=== PATIENT | male | born 1975 | race African-American/Black ===

== ENCOUNTER 2022-06-07 23:12 | Emergency (ER) | payer SELFPAY ==
[~2022-06-07 23:12] MED LIST: CLARITIN10 MG PO; MEDROL DOSEPAK4 MG PO
[2022-06-08 01:29] LABS: BASO # 0.1 10*3/uL (0.0-0.1); BASO % 1.2 % (0.0-1.0); EOS # 0.3 10*3/uL (0.0-0.4); EOS % 3.4 % (1.0-4.0); HEMATOCRIT 46.6 % (42.0-52.0); LYMPH # 2.7 10*3/uL (1.3-4.4); LYMPH % 31.3 % (27.0-41.0); MEAN CELL VOLUME 85.2 fl (80.0-94.0); MEAN CORPUSCULAR HGB 28.2 pg (27.0-31.0); MEAN PLATELET VOLUME 11.3 fl (9.6-12.3); MONO # 0.6 10*3/uL (0.1-1.0); MONO % 7.2 % (3.0-9.0); NEUT # 4.9 10*3/uL (2.3-7.9); NEUT % 56.8 % (47.0-73.0); PLATELET COUNT AUTOMATED 174 10*3/uL (130-400); RED BLOOD COUNT 5.47 10*6/uL (4.50-5.90); RED CELL DISTRI WIDTH 12.3 % (0-14.5); WHITE BLOOD COUNT 8.6 10*3/uL (4.8-10.8)
[2022-06-08 01:46] LABS: ALKALINE PHOSPHATASE 84 U/L (45-117); BUN 13 mg/dl (7-24); CHLORIDE 111 mmol/L (98-107); CREATININE 1.26 mg/dL (0.70-1.30); SGOT/AST 18 IU/L (3-35); SGPT/ALT 34 U/L (12-78); SODIUM 142 mmol/L (136-145); TOTAL PROTEIN 6.7 gm/dL (6.4-8.2)
== END 2022-06-08 02:50 | disposition left against medical advice (07) ==
LOC: ED 23:12
PROVIDERS: Family Medicine
DX: K08.89 Other specified disorders of teeth and supporting structures (principal); Z88.0 Allergy status to penicillin; Z91.040 Latex allergy status; Z88.1 Allergy status to other antibiotic agents

== ENCOUNTER 2022-06-20 22:17 | Emergency (ER) | payer MEDICAID ==
[~2022-06-20] VITALS: Ht 182.8 cm; Wt 103.0 kg
[2022-06-20 22:37] LABS: BASO # 0.1 10*3/uL (0.0-0.1); BASO % 1.2 % (0.0-1.0); EOS # 0.2 10*3/uL (0.0-0.4); EOS % 2.6 % (1.0-4.0); HEMATOCRIT 44.4 % (42.0-52.0); LYMPH # 2.2 10*3/uL (1.3-4.4); LYMPH % 28.5 % (27.0-41.0); MEAN CELL VOLUME 83.9 fl (80.0-94.0); MEAN CORPUSCULAR HGB 28.2 pg (27.0-31.0); MEAN CORPUSCULAR HGB CONC 33.6 g/dl (33.0-37.0); MEAN PLATELET VOLUME 11.5 fl (9.6-12.3); MONO # 0.5 10*3/uL (0.1-1.0); MONO % 6.4 % (3.0-9.0); NEUT # 4.7 10*3/uL (2.3-7.9); PLATELET COUNT AUTOMATED 161 10*3/uL (130-400); RED BLOOD COUNT 5.29 10*6/uL (4.50-5.90); RED CELL DISTRI WIDTH 12.1 % (0-14.5); WHITE BLOOD COUNT 7.6 10*3/uL (4.8-10.8)
[2022-06-20 22:51] LABS: ALKALINE PHOSPHATASE 93 U/L (45-117); BUN 11 mg/dl (7-24); CHLORIDE 108 mmol/L (98-107); CREATININE 1.21 mg/dL (0.70-1.30); POTASSIUM 3.5 mmol/L (3.5-5.1); SGOT/AST 25 IU/L (3-35); SGPT/ALT 38 U/L (12-78); SODIUM 140 mmol/L (136-145); TOTAL PROTEIN 6.9 gm/dL (6.4-8.2)
[2022-06-21 01:17] LABS: BILIRUBIN Negative (Negative); BLOOD Negative (Negative); CLARITY Clear (Clear); COLOR Yellow (Yellow); GLUCOSE Negative (Negative); KETONE Negative (Negative); LEUKO ESTERASE Negative (Negative); NITRITE Negative (Negative); PH 5.5 (4.5-8.0); UROBILINOGEN 0.2 E.U./dl (0.0-1.0)
[2022-06-21 01:26] LABS: URINE AMPHETAMINES < 1000 (1000ng/ml); URINE BARBITURATES < 200 (200ng/ml); URINE BENZODIAZEPINES < 200 (200ng/ml); URINE CANNABINOIDS (THC) > 50 (50ng/ml); URINE COCAINE < 300 (300ng/ml); URINE METHADONE < 300 (300ng/ml); URINE OPIATES < 300 (300ng/ml)
[2022-06-21 01:27] LABS: URINE PHENCYCLIDINE < 25 (25ng/ml)
== END 2022-06-21 01:54 | disposition home or self-care (01) ==
LOC: ED 22:17
PROVIDERS: Internal Medicine
DX: R56.9 Unspecified convulsions (principal); Z88.0 Allergy status to penicillin; Z88.1 Allergy status to other antibiotic agents

== ENCOUNTER 2022-07-21 11:40 | Emergency (ER) | payer MEDICAID ==
[~2022-07-21] VITALS: Wt 103.4 kg
[2022-07-21 12:40] LABS: BASO # 0.1 10*3/uL (0.0-0.1); BASO % 1.4 % (0.0-1.0); EOS # 0.1 10*3/uL (0.0-0.4); EOS % 1.2 % (1.0-4.0); HEMATOCRIT 49.4 % (42.0-52.0); LYMPH # 1.5 10*3/uL (1.3-4.4); LYMPH % 16.5 % (27.0-41.0); MEAN CELL VOLUME 84.2 fl (80.0-94.0); MEAN CORPUSCULAR HGB 27.9 pg (27.0-31.0); MEAN CORPUSCULAR HGB CONC 33.2 g/dl (33.0-37.0); MEAN PLATELET VOLUME 11.8 fl (9.6-12.3); MONO # 0.4 10*3/uL (0.1-1.0); MONO % 4.6 % (3.0-9.0); NEUT # 6.8 10*3/uL (2.3-7.9); NEUT % 76.1 % (47.0-73.0); PLATELET COUNT AUTOMATED 165 10*3/uL (130-400); RED BLOOD COUNT 5.87 10*6/uL (4.50-5.90); RED CELL DISTRI WIDTH 12.6 % (0-14.5)
[2022-07-21 12:56] LABS: ALKALINE PHOSPHATASE 89 U/L (45-117); BUN 12 mg/dl (7-24); CHLORIDE 110 mmol/L (98-107); CREATININE 1.15 mg/dL (0.70-1.30); POTASSIUM 4.4 mmol/L (3.5-5.1); SGOT/AST 15 IU/L (3-35); SGPT/ALT 33 U/L (12-78); SODIUM 142 mmol/L (136-145)
[2022-07-21] MEDS ORDERED: CLINDAMYCIN HC300 MG PO (13:05)
== END 2022-07-21 13:08 | disposition home or self-care (01) ==
LOC: ED 11:40
PROVIDERS: Physician Assistant
DX: K04.7 Periapical abscess without sinus (principal); Z88.0 Allergy status to penicillin; Z91.040 Latex allergy status

== ENCOUNTER 2022-08-15 06:40 | Emergency (ER) | payer MEDICAID ==
[~2022-08-15] VITALS: Ht 182.8 cm; Wt 102.1 kg
[~2022-08-15 06:40] MED LIST changes: +CLINDAMYCIN HC300 MG PO
[2022-08-15] MEDS ORDERED: CLINDAMYCIN HC300 MG PO (08:15)
== END 2022-08-15 08:20 | disposition home or self-care (01) ==
LOC: ED 06:40
DX: K02.9 Dental caries, unspecified (principal); Z88.0 Allergy status to penicillin; Z91.018 Allergy to other foods; Z91.030 Bee allergy status; F17.200 Nicotine dependence, unspecified, uncomplicated

== ENCOUNTER 2022-08-17 21:42 | Emergency (ER) | payer MEDICAID ==
[~2022-08-17] VITALS: Ht 182.8 cm; Wt 101.6 kg
== END 2022-08-17 23:33 | disposition home or self-care (01) ==
LOC: ED 21:42
DX: S60.221A Contusion of right hand, initial encounter (principal); S09.90XA Unspecified injury of head, initial encounter; Z91.030 Bee allergy status; Z91.018 Allergy to other foods; Z88.0 Allergy status to penicillin; W51.XXXA Accidental striking against or bumped into by another person, initial encounter; Y93.89 Activity, other specified; Y92.89 Other specified places as the place of occurrence of the external cause; Y99.8 Other external cause status

== ENCOUNTER 2022-09-01 08:41 | Emergency (ER) | payer SELFPAY ==
[2022-09-01 09:59] LABS: BASO % 0.8 % (0.0-1.0); EOS # 0.1 10*3/uL (0.0-0.4); EOS % 1.8 % (1.0-4.0); HEMATOCRIT 48.3 % (42.0-52.0); LYMPH % 20.3 % (27.0-41.0); MEAN CELL VOLUME 82.8 fl (80.0-94.0); MEAN CORPUSCULAR HGB 28.1 pg (27.0-31.0); MEAN PLATELET VOLUME 12.1 fl (9.6-12.3); MONO # 0.5 10*3/uL (0.1-1.0); MONO % 10.1 % (3.0-9.0); NEUT # 3.3 10*3/uL (2.3-7.9); NEUT % 66.8 % (47.0-73.0); PLATELET COUNT AUTOMATED 130 10*3/uL (130-400); RED BLOOD COUNT 5.83 10*6/uL (4.50-5.90); RED CELL DISTRI WIDTH 12.1 % (0-14.5); WHITE BLOOD COUNT 4.9 10*3/uL (4.8-10.8)
[2022-09-01 10:11] LABS: ACT PARTIAL THROMBO TIME 30.1 SECONDS (20.0-32.1); INTERNATIONAL NORM RATIO 1.1 (2.0-3.5)
[2022-09-01 10:13] LABS: ALKALINE PHOSPHATASE 79 U/L (46-116); BUN 9 mg/dl (9-23); CHLORIDE 104 mmol/L (98-107); CREATININE 1.04 mg/dL (0.70-1.30); LIPASE 31 U/L (12-53); POTASSIUM 4.2 mmol/L (3.4-5.1); SGPT/ALT 26 U/L (10-49); SODIUM 138 mmol/L (136-145); TOTAL PROTEIN 6.6 gm/dL (6.0-8.0)
[2022-09-01 10:20] LABS: BILIRUBIN Negative (Negative); BLOOD Negative (Negative); CLARITY Clear (Clear); COLOR Yellow (Yellow); GLUCOSE Negative (Negative); KETONE Trace (Negative); LEUKO ESTERASE Trace (Negative); NITRITE Negative (Negative)
[2022-09-01 10:38] LABS: BACTERIA TRACE; EPITHELIAL CELLS 0-2; WBC 0-2 wbc/hpf (0-5)
[2022-09-01] MEDS ORDERED: CYCLOBENZAPRINE10 MG PO (11:58)
[2022-09-01] MEDS ORDERED: RELAFEN500 M1 PO (11:58)
== END 2022-09-01 12:19 | disposition home or self-care (01) ==
LOC: ED 08:41
PROVIDERS: Family Medicine
DX: R10.31 Right lower quadrant pain (principal); Z91.030 Bee allergy status; Z88.0 Allergy status to penicillin

== ENCOUNTER 2024-02-01 17:37 | Emergency (ER) | payer MEDICAID ==
[~2024-02-01] VITALS: Ht 185.4 cm; Wt 98.9 kg
[~2024-02-01 17:37] MED LIST changes: +CYCLOBENZAPRINE10 MG PO; +RELAFEN500 M1 PO
[2024-02-01] MEDS ORDERED: DILANTIN100 MG PO (17:50)
[2024-02-01 17:59] LABS: BASO # 0.1 10*3/uL (0.0-0.1); BASO % 1.4 % (0.0-1.0); EOS # 0.2 10*3/uL (0.0-0.4); EOS % 2.3 % (1.0-4.0); HEMATOCRIT 48.1 % (42.0-52.0); LYMPH # 2.2 10*3/uL (1.3-4.4); LYMPH % 21.6 % (27.0-41.0); MEAN CELL VOLUME 86.8 fl (80.0-94.0); MEAN CORPUSCULAR HGB 28.5 pg (27.0-31.0); MEAN CORPUSCULAR HGB CONC 32.8 g/dl (33.0-37.0); MEAN PLATELET VOLUME 11.1 fl (9.6-12.3); MONO # 0.6 10*3/uL (0.1-1.0); MONO % 5.7 % (3.0-9.0); NEUT # 6.9 10*3/uL (2.3-7.9); NEUT % 68.8 % (47.0-73.0); PLATELET COUNT AUTOMATED 177 10*3/uL (130-400); RED BLOOD COUNT 5.54 10*6/uL (4.50-5.90); RED CELL DISTRI WIDTH 12.3 % (0-14.5); WHITE BLOOD COUNT 10.1 10*3/uL (4.8-10.8)
[2024-02-01 18:22] LABS: ALKALINE PHOSPHATASE 87 U/L (46-116); BUN 9 mg/dl (9-23); CHLORIDE 106 mmol/L (98-107); LIPASE 34 U/L (12-53); POTASSIUM 3.7 mmol/L (3.4-5.1); SGPT/ALT 37 U/L (5-49); TOTAL PROTEIN 6.9 gm/dL (6.0-8.0)
[2024-02-01 18:24] LABS: ETHYL ALCOHOL < 3.0 mg/dl (<3); PHENYTOIN (DILANTIN) < 2.0 ug/ml (10-20)
[2024-02-01 18:30] LABS: ACT PARTIAL THROMBO TIME 27.1 SECONDS (20.0-32.1)
[2024-02-01] MEDS ORDERED: [UNRECOGNIZED DRUG - OTHER] IV ONE (19:45)
[2024-02-01] MEDS ORDERED: ACETAMINOPHEN 325 MG TAB PO ONE (19:50)
[2024-02-01] MEDS ORDERED: Ondansetron Hydrochloride 4 MG/2 ML VIAL IV ONE (20:30)
== END 2024-02-01 20:36 | disposition home or self-care (01) ==
LOC: ED 17:37
PROVIDERS: Internal Medicine
DX: G40.909 Epilepsy, unspecified, not intractable, without status epilepticus (principal); R74.8 Abnormal levels of other serum enzymes; Z53.29 Procedure and treatment not carried out because of patient's decision for other reasons; F32.A Depression, unspecified; J45.909 Unspecified asthma, uncomplicated; J44.9 Chronic obstructive pulmonary disease, unspecified; E16.2 Hypoglycemia, unspecified; Z91.030 Bee allergy status; Z91.013 Allergy to seafood; Z88.0 Allergy status to penicillin; Z88.1 Allergy status to other antibiotic agents; Z87.891 Personal history of nicotine dependence

== ENCOUNTER 2024-09-01 21:21 | Emergency (ER) | payer SELFPAY ==
[~2024-09-01] VITALS: Ht 187.9 cm; Wt 99.8 kg
[~2024-09-01 21:21] MED LIST changes: +DILANTIN100 MG PO
[2024-09-01] MEDS ORDERED: ACETAMINOPHEN 325 MG TAB PO ONE (21:55)
== END 2024-09-01 23:17 | disposition home or self-care (01) ==
LOC: ED 21:21
DX: S63.502A Unspecified sprain of left wrist, initial encounter (principal); F32.A Depression, unspecified; J44.9 Chronic obstructive pulmonary disease, unspecified; Z91.030 Bee allergy status; Z91.013 Allergy to seafood; Z88.0 Allergy status to penicillin; Z88.1 Allergy status to other antibiotic agents; X50.0XXA Overexertion from strenuous movement or load, initial encounter; Y93.89 Activity, other specified; Y92.009 Unspecified place in unspecified non-institutional (private) residence as the place of occurrence of the external cause; Y99.8 Other external cause status

== ENCOUNTER 2024-09-07 14:37 | Emergency (ER) | payer SELFPAY ==
[~2024-09-07] VITALS: Ht 185.4 cm; Wt 99.8 kg
[2024-09-07] MEDS ORDERED: Bacitracin Zinc 14 GM TUBE T ONE (15:05)
[2024-09-07] MEDS ORDERED: Tdap Vaccine 0.5 ML SYR (Adult Vaccine) IM ONE (15:05)
[2024-09-07] MEDS ORDERED: VIBRAMYCIN100 MG PO (16:39)
[2024-09-07] MEDS ORDERED: Doxycycline Hyclate 100 MG CAP PO ONE (16:40)
== END 2024-09-07 17:03 | disposition home or self-care (01) ==
LOC: ED 14:37
DX: S51.011A Laceration without foreign body of right elbow, initial encounter (principal); S70.01XA Contusion of right hip, initial encounter; S20.211A Contusion of right front wall of thorax, initial encounter; J44.9 Chronic obstructive pulmonary disease, unspecified; Z91.030 Bee allergy status; Z88.0 Allergy status to penicillin; Z88.1 Allergy status to other antibiotic agents; W18.39XA Other fall on same level, initial encounter; Y93.89 Activity, other specified; Y92.89 Other specified places as the place of occurrence of the external cause; Y99.8 Other external cause status

== ENCOUNTER 2025-01-14 11:37 | Emergency (ER) | payer SELFPAY ==
[~2025-01-14] VITALS: Ht 185.4 cm; Wt 108.4 kg
[~2025-01-14 11:37] MED LIST changes: +VIBRAMYCIN100 MG PO
[2025-01-14] MEDS ORDERED: DILANTIN100 MG PO ×3 (12:02→12:03)
[2025-01-14] MEDS ORDERED: MORPHINE Sulfate 2 MG/ML SYR IV ONE (12:15)
[2025-01-14] MEDS ORDERED: SODIUM CHLORIDE 0.9% 1,000 ML IV ONE (12:15)
[2025-01-14] MEDS ORDERED: Ondansetron Hydrochloride 4 MG/2 ML VIAL IV ONE (12:15)
[2025-01-14 12:34] LABS: BASO # 0.1 10*3/uL (0.0-0.1); BASO % 1.9 % (0.0-1.0); EOS # 0.3 10*3/uL (0.0-0.4); EOS % 5.2 % (1.0-4.0); HEMATOCRIT 46.7 % (42.0-52.0); MEAN CELL VOLUME 85.4 fl (80.0-94.0); MEAN CORPUSCULAR HGB 28.2 pg (27.0-31.0); MEAN PLATELET VOLUME 11.2 fl (9.6-12.3); MONO # 0.4 10*3/uL (0.1-1.0); MONO % 6.1 % (3.0-9.0); NEUT # 3.3 10*3/uL (2.3-7.9); NEUT % 52.5 % (47.0-73.0); PLATELET COUNT AUTOMATED 165 10*3/uL (130-400); RED BLOOD COUNT 5.47 10*6/uL (4.50-5.90); RED CELL DISTRI WIDTH 12.6 % (0-14.5); WHITE BLOOD COUNT 6.4 10*3/uL (4.8-10.8)
[2025-01-14 12:46] LABS: ACT PARTIAL THROMBO TIME 26.3 SECONDS (20.0-32.1)
[2025-01-14] MEDS ORDERED: ACETAMINOPHEN 325 MG TAB PO ONE (12:50)
[2025-01-14 12:56] LABS: ALKALINE PHOSPHATASE 91 U/L (46-116); BUN 12 mg/dl (9-23); CHLORIDE 108 mmol/L (98-107); LIPASE 85 U/L (12-53); SGPT/ALT 24 U/L (5-49); TOTAL PROTEIN 6.7 gm/dL (6.0-8.0)
[2025-01-14 13:46] LABS: BILIRUBIN Negative (Negative); BLOOD Negative (Negative); CLARITY Clear (Clear); COLOR Yellow (Yellow); GLUCOSE Negative (Negative); KETONE Trace (Negative); LEUKO ESTERASE Negative (Negative); NITRITE Negative (Negative); PH 5.5 (4.5-8.0); UROBILINOGEN 0.2 E.U./dl (0.0-1.0)
[2025-01-14 13:53] LABS: BACTERIA 1+; RBC 0-2 rbc/hpf (0-2); WBC 0-2 wbc/hpf (0-5)
== END 2025-01-14 13:58 | disposition home or self-care (01) ==
LOC: ED 11:37
PROVIDERS: Physician Assistant Medical
DX: R10.12 Left upper quadrant pain (principal); K92.1 Melena; R31.9 Hematuria, unspecified; Z91.030 Bee allergy status; Z91.018 Allergy to other foods; Z88.0 Allergy status to penicillin; J44.9 Chronic obstructive pulmonary disease, unspecified; Z87.442 Personal history of urinary calculi; Z85.72 Personal history of non-Hodgkin lymphomas

== ENCOUNTER 2025-02-21 21:10 | Emergency (ER) | payer OTHER ==
[~2025-02-21] VITALS: Ht 185.4 cm; Wt 103.4 kg
[2025-02-21 21:56] LABS: BASO # 0.1 10*3/uL (0.0-0.1); BASO % 1.1 % (0.0-1.0); EOS # 0.4 10*3/uL (0.0-0.4); EOS % 4.3 % (1.0-4.0); HEMATOCRIT 47.3 % (42.0-52.0); MEAN CELL VOLUME 84.8 fl (80.0-94.0); MEAN CORPUSCULAR HGB 28.3 pg (27.0-31.0); MEAN CORPUSCULAR HGB CONC 33.4 g/dl (33.0-37.0); MEAN PLATELET VOLUME 11.4 fl (9.6-12.3); MONO # 0.6 10*3/uL (0.1-1.0); MONO % 6.9 % (3.0-9.0); NEUT # 5.5 10*3/uL (2.3-7.9); NEUT % 61.6 % (47.0-73.0); PLATELET COUNT AUTOMATED 155 10*3/uL (130-400); RED BLOOD COUNT 5.58 10*6/uL (4.50-5.90); RED CELL DISTRI WIDTH 12.5 % (0-14.5); WHITE BLOOD COUNT 8.9 10*3/uL (4.8-10.8)
[2025-02-21 22:21] LABS: BUN 16 mg/dl (9-23); CHLORIDE 106 mmol/L (98-107); POTASSIUM 3.8 mmol/L (3.4-5.1)
[2025-02-21 22:24] LABS: ETHYL ALCOHOL < 3.0 mg/dl (<3)
[2025-02-21 22:27] LABS: BILIRUBIN Negative (Negative); BLOOD Negative (Negative); CLARITY Clear (Clear); COLOR Yellow (Yellow); GLUCOSE Negative (Negative); KETONE Negative (Negative); LEUKO ESTERASE Negative (Negative); NITRITE Negative (Negative)
[2025-02-21 22:33] LABS: URINE AMPHETAMINES Negative (1000ng/ml); URINE BARBITURATES Negative (200ng/ml); URINE BENZODIAZEPINES Negative (200ng/ml); URINE CANNABINOIDS (THC) Positive (50ng/ml); URINE COCAINE Negative (300ng/ml); URINE METHADONE Negative (300ng/ml); URINE OPIATES Negative (300ng/ml); URINE PHENCYCLIDINE Negative (25ng/ml)
[2025-02-21 22:37] LABS: WBC 0-2 wbc/hpf (0-5)
[2025-02-21] MEDS ORDERED: Phenytoin Sodium, Extended 100 MG CAP PO ONE (23:15)
== END 2025-02-22 00:21 | disposition home or self-care (01) ==
LOC: ED 21:10
PROVIDERS: Internal Medicine
DX: R56.9 Unspecified convulsions (principal); M25.572 Pain in left ankle and joints of left foot; Z79.899 Other long term (current) drug therapy; Z88.0 Allergy status to penicillin; Z88.1 Allergy status to other antibiotic agents; Z91.030 Bee allergy status; Z91.048 Other nonmedicinal substance allergy status

== ENCOUNTER 2025-03-17 12:24 | Emergency (ER) | payer OTHER ==
[~2025-03-17] VITALS: Ht 182.8 cm; Wt 103.9 kg
[2025-03-17] MEDS ORDERED: EXTENDED PHENY200 MG PO (12:38)
[2025-03-17] MEDS ORDERED: EXTENDED PHENY300 MG PO (12:39)
== END 2025-03-17 14:20 | disposition home or self-care (01) ==
LOC: ED 12:24
DX: S93.401A Sprain of unspecified ligament of right ankle, initial encounter (principal); J45.909 Unspecified asthma, uncomplicated; F32.A Depression, unspecified; Z79.899 Other long term (current) drug therapy; Z88.0 Allergy status to penicillin; Z88.1 Allergy status to other antibiotic agents; Z91.030 Bee allergy status; Z98.890 Other specified postprocedural states; W17.2XXA Fall into hole, initial encounter; Y93.H2 Activity, gardening and landscaping; Y92.89 Other specified places as the place of occurrence of the external cause; Y99.8 Other external cause status

== ENCOUNTER 2025-06-22 18:15 | Emergency (ER) | payer OTHER ==
[~2025-06-22] VITALS: Ht 177.8 cm; Wt 90.7 kg
[~2025-06-22 18:15] MED LIST changes: +EXTENDED PHENY200 MG PO; +EXTENDED PHENY300 MG PO
[2025-06-22] MEDS ORDERED: diphenhydrAMINE hydrochloride 50 MG/ML VIAL IV ONE (18:20)
[2025-06-22] MEDS ORDERED: SODIUM CHLORIDE 0.9% 1,000 ML IV ONE (18:20)
[2025-06-22] MEDS ORDERED: Metoclopramide Hydrochloride 10 MG/2 ML VIAL IV ONE (18:20)
[2025-06-22] MEDS ORDERED: REGLAN10 M1 PO (18:25)
[2025-06-22] MEDS ORDERED: CLINDAMYCIN HC300 MG PO (18:25)
[2025-06-22 19:27] LABS: BASO # 0.1 10*3/uL (0.0-0.1); BASO % 0.6 % (0.0-1.0); EOS # 0.1 10*3/uL (0.0-0.4); EOS % 1.3 % (1.0-4.0); MEAN CELL VOLUME 85.4 fl (80.0-94.0); MEAN CORPUSCULAR HGB 27.6 pg (27.0-31.0); MEAN PLATELET VOLUME 11.7 fl (9.6-12.3); MONO # 0.4 10*3/uL (0.1-1.0); MONO % 3.3 % (3.0-9.0); NEUT # 9.4 10*3/uL (2.3-7.9); NEUT % 86.6 % (47.0-73.0); NUCLEATED RED BLOOD CELL 0.0 % (0.0-0.0); NUCLEATED RED BLOOD CELL 0.0 10*3/uL (0.0-0.0); PLATELET COUNT AUTOMATED 160 10*3/uL (130-400); RED CELL DISTRI WIDTH 12.7 % (0-14.5)
[2025-06-22 19:46] LABS: BUN 13 mg/dl (9-23)
== END 2025-06-22 20:49 | disposition home or self-care (01) ==
LOC: ED 18:15
PROVIDERS: Emergency Medicine
DX: K04.7 Periapical abscess without sinus (principal); R11.2 Nausea with vomiting, unspecified; M54.50 Low back pain, unspecified; Z91.030 Bee allergy status; Z91.018 Allergy to other foods; Z88.0 Allergy status to penicillin; Z88.1 Allergy status to other antibiotic agents; Z79.899 Other long term (current) drug therapy

== ENCOUNTER → 2025-07-03 | Outpatient (CLI) | payer OTHER ==
[~2025-07-03] MED LIST changes: +REGLAN10 M1 PO
== END | disposition home or self-care (01) ==
LOC: LAB 09:37
PROVIDERS: ATTEND Family Medicine
DX: M54.2 Cervicalgia (principal)